=== PATIENT | female | born 1975 | race Caucasian/White ===

== ENCOUNTER 2022-01-12 20:34 | Emergency (ER) | payer OTHER, SELFPAY ==
[2022-01-12] VITALS (8 sets, daily range): BP systolic 156–159; BP diastolic 80–85; PULSE 106–116; RESP 11–26; TEMP 36.8; O2SAT 90–96; BMI 57.7
[2022-01-12 21:18] LABS: Add Manual Diff / Slide Review NO; Basophils Absolute Auto 100 /uL (0-100); Basophils Percent Auto 0.7 % (0-2); Eosinophils Absolute Auto 300 /uL (0-450); Eosinophils Percent Auto 2.4 % (2-4); Hematocrit 36.5 % (36-46); Hemoglobin 12.3 g/dL (12.0-16.0); INR 1.1 (0.9-1.3); Lymphocytes Absolute Auto 2200 /uL (1100-4500); Lymphocytes Percent Auto 18.8 % (25-40); Mean Corpuscular HGB Conc 33.5 % (30-36); Mean Corpuscular Hemoglobin 29.8 PG (26-34); Mean Corpuscular Volume 88.7 fL (80-100); Monocytes Absolute Auto 1000 /uL (0-900); Monocytes Percent Auto 8.3 % (3-14); Neutrophils Absolute Auto 8300 /uL (1500-7000); Neutrophils Percent Auto 69.8 % (50-75); Platelet Count 232 X10^3/uL (150-400); Prothrombin Time 12.7 SECONDS (10.1-12.7); Red Blood Cell Count 4.12 X10^6/uL (4.0-5.2); Red Cell Distribution Width 14.5 % (11.6-14.8); White Blood Cell Count 11.8 X10^3/uL (4.5-11.0)
[2022-01-12 21:21] LABS: PTT Partial Thromboplastin Tim 30 SECONDS (26.4-36.2)
[2022-01-12 21:23] LABS: Alanine Aminotransferase 25 IU/L (<35); Albumin 3.8 g/dL (3.5-5.0); Albumin Globulin Ratio 1.2 (1.0-2.8); Alkaline Phosphatase 73 U/L (38-126); Aspartate Aminotransferase 44 IU/L (14-36); BUN Creatinine Ratio 16.5 (6-22); Bilirubin Total 0.7 mg/dL (0.2-1.3); Blood Urea Nitrogen 15 mg/dL (7-17); Calcium 9.2 mg/dL (8.4-10.2); Carbon Dioxide 30 mmol/L (22-32); Chloride 100 mmol/L (98-107); Estimated Glomerular Filt Rate > 60 mL/min (>60); Globulin 3.2 g/dL (1.7-4.1); Glucose 126 mg/dL (70-100); HEMOLYSIS 22 (0-50); Lipase 190 U/L (23-300); Potassium 4.2 mmol/L (3.4-5.1); Sodium 138 mmol/L (137-145)
--- NOTE | 2022-01-12 23:14 | ED_ITS ---
HPI - GI Bleed General Chief complaint: GI Bleed Stated complaint: Rectal bleeding Time Seen by Provider: 01/12/22 20:55 Source: patient and EMS Mode of arrival: EMS History of Present Illness HPI Narrative: Patient is a 46-year-old female. Has multiple medical problems to include obesity, COPD, use of home oxygen, pulmonary hypertension an asthma She comes emergency department today for which she describes as rectal bleeding. She st ates she was sleeping. When she woke up she felt like that her pants were wet. She went to go use the restroom and noticed that there was blood in her pants. She did report that she did have a somewhat painful bowel movement that was bloody. She denied any urinary symptoms. She states she tried hold pressure on the rectum but could not get the bleeding to stop so she contacted EMS to bring her into the emergency department. She reports no change in her respiratory status. No chest pain. She states that her heart rate is very frequently above 100 so being tachycardic is not unusual for her. She denies any abdominal pain. No nausea or vomiting. No prior history of hemorrhoids. She has had a colonoscopy in the past. This is approximately 3 years ago. She states that multiple polyps were taken at the time. She states she is due to have a repeat colonoscopy. Related Data Previous Rx's Medication Instructions Recorded nystatin 100,000 unit/gram topical 1 applic TOPICAL BID #15 g 01/13/22 powder Allergies Allergy/AdvReac Type Severity Reaction Status Date / Time fexofenadine [From Jazlyn] Allergy Verified 01/12/22 21:02 loratadine [From Claritin] Allergy Verified 01/12/22 21:02 Review of Systems Constitutional Comments: No fevers Cardiovascular Comments: No chest pain Respiratory Comments: No change in respiratory status Gastrointestinal Comments: No abdominal pain but is having rectal bleeding Genitourinary Comments: No urinary symptoms Integumentary/Breasts Comments: Redness on bilateral lower extremities and yeast infection and irritation under her breasts and under her pannus Neurologic Neurologic: Reports system reviewed and no additional complaints, except as documented Hematologic/Lymphatic On Anticoagulants: No Patient History Medical History Asthma Colonic polyp COPD (chronic obstructive pulmonary disease) Pulmonary hypertension Tachycardia Social History (Reviewed 01/13/22 @ 06:38 by JAEL Jack Smoking Status: Never smoker Smoking Status: Never smoker Substance Use Type: does not use Exam Initial Vital Signs Initial Vital Signs: Vital Signs Temperature 98.3 F 01/12/22 20:35 Pulse Rate 116 H 01/12/22 20:35 Respiratory Rate 24 01/12/22 20:35 Blood Pressure 156/85 H 01/12/22 20:35 Pulse Oximetry 95 01/12/22 20:35 Const General: No in distress Nutritional Appearance: obese HENMT Head: normal to inspection and normocephalic Resp Effort & Inspection: not labored and tachypneic Auscultation: diminished lung sounds Cardio Rate: tachycardic Rhythm: regular rhythm GI Other: Patient has no hemorrhoids. She is not bleeding from her rectum. She has bleeding from the skin superior to the rectum. Skin Other: Patient does have redness circumferential bilateral lower extremities from the knees to the ankles. Patient also has sores on her upper buttocks that are cons istent with pressure sores. There is no ulcerations in the area. She also has findings an the folds of her skin under her breast and also her pannus consistent with yeast infection. Neuro General: patient alert, patient awake and moves all extremities Extrem Other: Patient does have swelling bilateral lower extremities with redness from the knees to the ankles. Moves all 4 extremities equally. Psych Appearance: grossly normal Course Orders Ordered: ED Orders 01/12/22 20:45 Complete Blood Count AUTO DIFF Stat Comprehensive Metabolic Panel Stat Lipase Stat Partial Thromboplastin Time Stat Prothrombin Time INR Stat Type and Screen Stat 01/12/22 21:06 EKG-12 Lead Stat 01/12/22 21:07 EKG-12 Lead Stat Vital Signs Vital signs: Vital Signs - 8 hr 01/12/22 23:00 01/12/22 23:28 01/13/22 00:00 Pulse Rate 107 H 111 H 103 H Respiratory Rate 19 24 Blood Pressure 159/80 H Pulse Oximetry 94 90 L 93 01/13/22 00:30 01/13/22 01:00 01/13/22 01:30 Pulse Rate 101 H 104 H 106 H Respiratory Rate Blood Pressure Pulse Oximetry 95 94 01/13/22 02:00 01/13/22 02:08 Pulse Rate 101 H 103 H Respiratory Rate Blood Pressure 155/65 H Pulse Oximetry 94 MDM - GI Bleed Lab Data Attestation: I reviewed the patient's lab results. Result diagrams: 01/12/22 20:45 01/12/22 20:45 Labs: Lab Results 01/12/22 01/12/22 01/12/22 Range/Units 20:45 20:45 20:45 WBC 11.8 H (4.5-11.0) X10^3/uL RBC 4.12 (4.0-5.2) X10^6/uL Hgb 12.3 (12.0-16.0) g/dL Hct 36.5 (36-46) % MCV 88.7 (80-100) fL MCH 29.8 (26-34) PG MCHC 33.5 (30-36) % RDW 14.5 (11.6-14.8) % Plt Count 232 (150-400) X10^3/uL Neut % (Auto) 69.8 (50-75) % Lymph % (Auto) 18.8 L (25-40) % [place] % (Auto) 8.3 (3-14) % Eos % (Auto) 2.4 (2-4) % Baso % (Auto) 0.7 (0-2) % Neut # (Auto) 8300 H (6585-2113) /uL Lymph # (Auto) 2200 (3914-6562) /uL [place] # (Auto) 1000 H (0-900) /uL Eos # (Auto) 300 (0-450) /uL Baso # (Auto) 100 (0-100) /uL PT 12.7 (10.1-12.7) SECONDS INR 1.1 (0.9-1.3) APTT 30 (26.4-36.2) SECONDS Sodium (137-145) mmol/L Potassium (3.4-5.1) mmol/L Chloride (98-107) mmol/L Carbon Dioxide (22-32) mmol/L BUN (7-17) mg/dL Creatinine (0.52-1.04) mg/dL Estimated GFR (>60) mL/min BUN/Creatinine Ratio (6-22) Glucose (70-100) mg/dL Calcium (8.4-10.2) mg/dL Total Bilirubin (0.2-1.3) mg/dL AST (14-36) IU/L ALT (<35) IU/L Alkaline Phosphatase (38-126) U/L Total Protein (6.3-8.2) g/dL Albumin (3.5-5.0) g/dL Globulin (1.7-4.1) g/dL Albumin/Globulin Ratio (1.0-2.8) Lipase (23-300) U/L Blood Type O Positive Antibody Screen Negative 01/12/22 Range/Units 20:45 WBC (4.5-11.0) X10^3/uL RBC (4.0-5.2) X10^6/uL Hgb (12.0-16.0) g/dL Hct (36-46) % MCV (80-100) fL MCH (26-34) PG MCHC (30-36) % RDW (11.6-14.8) % Plt Count (150-400) X10^3/uL Neut % (Auto) (50-75) % Lymph % (Auto) (25-40) % [place] % (Auto) (3-14) % Eos % (Auto) (2-4) % Baso % (Auto) (0-2) % Neut # (Auto) (4998-3573) /uL Lymph # (Auto) (0652-6928) /uL [place] # (Auto) (0-900) /uL Eos # (Auto) (0-450) /uL Baso # (Auto) (0-100) /uL PT (10.1-12.7) SECONDS INR (0.9-1.3) APTT (26.4-36.2) SECONDS Sodium 138 (137-145) mmol/L Potassium 4.2 (3.4-5.1) mmol/L Chloride 100 (98-107) mmol/L Carbon Dioxide 30 (22-32) mmol/L BUN 15 (7-17) mg/dL Creatinine 0.91 (0.52-1.04) mg/dL Estimated GFR > 60 (>60) mL/min BUN/Creatinine Ratio 16.5 (6-22) Glucose 126 H (70-100) mg/dL Calcium 9.2 (8.4-10.2) mg/dL Total Bilirubin 0.7 (0.2-1.3) mg/dL AST 44 H (14-36) IU/L ALT 25 (<35) IU/L Alkaline Phosphatase 73 (38-126) U/L Total Protein 7.0 (6.3-8.2) g/dL Albumin 3.8 (3.5-5.0) g/dL Globulin 3.2 (1.7-4.1) g/dL Albumin/Globulin Ratio 1.2 (1.0-2.8) Lipase 190 (23-300) U/L Blood Type Antibody Screen ECG Data Attestation: I personally reviewed and interpreted this ECG as follows: Interpretation: Sinus tachycardia Ventricular rate 110 Normal axis Normal QRS Normal QTC No ST T wave changes MDM Narrative Medical decision making narrative: Respiratory status is baseline for her. Tachycardia is not unusual for her as well. The redness in her lower extremities is more consistent with a venous stasis/dermatitis rather than cellulitis. There is no indication for antibiotics with regard to this. She has obvious issues with the skin folds and today it does appear that she is having findings consistent with yeast infe ction. Will start her on nystatin powder for this. Also informed her that keeping this area clean and dry as best as possible will also help with these situations. Patient is not having any bleeding from her rectum. The bleeding is actually coming from the skin superior to the rectum. In this area the patient is obviously spent an extended period of time sitting. There are no pressure ulcers but there is certainly redness and hyperemia to the skin. On the left superior buttocks there is a area of hyperemia and also an area very thin skin in this area where the bleeding is coming from. It was a fairly steady stream when there is no pressure over the area. Approximately 5 cc of 1% lidocaine with epinephrine was injected into the area however the bleeding did not stop. One 4-0 silk stitch was placed in the area and this did control the bleeding quite a bit however there was still oozing from the area. Pressure was applied and the patient was instructed does sit for. Time. Upon re-evaluation there were still oozing from the area so Gelfoam was placed over the area and again a pressure dressing was placed. After further observation the bleeding in the oozing seem to stop. Another pressure dressing was applied and the patient was instructed try to keep this in place for the next 24-48 hours after which she could remove the dressing. She was informed that the stitch will need to be removed in approximately 7 days. She was instructed to contact her primary doctor for this. Blood counts unremarkable. She was given return precautions. She expressed understanding and agreement. Discharge Plan Departure Patient Disposition: Home Clinical Impression: Pressure sore on buttocks Instructions: Pressure Injuries Activity Restrictions/Additional Instructions: If possible leave the bandage in place for the next 24-36 hours. After that you can take it off. The stitch that was placed today will need to be removed by your primary provider. Return to the emergency department for any new or worsening symptoms. Prescriptions: New nystatin 100,000 unit/gram powder 1 applic topical BID Qty: 15 3RF
[2022-01-13] VITALS: PULSE 103; O2SAT 93
[2022-01-13 00:30] VITALS: PULSE 101; O2SAT 95
[2022-01-13 01:00] VITALS: PULSE 104; O2SAT 94
[2022-01-13 01:30] VITALS: PULSE 106
[2022-01-13 02:00] VITALS: PULSE 101
[2022-01-13 02:08] VITALS: BP 155/65; PULSE 103; O2SAT 94
== END 2022-01-13 02:40 | disposition home or self-care (01) ==
PROVIDERS: Emergency Provider Emergency Medicine
DX: L89.329 Pressure ulcer of left buttock, unspecified stage (principal); L53.9 Erythematous condition, unspecified
CPT/HCPCS: 12001; 80053; 83690; 85025; 85610; 85730; 86850; 86900; 86901; 93005; 99283; 99284

== ENCOUNTER 2022-01-27 22:31 | Emergency (ER) | payer OTHER, SELFPAY ==
[2022-01-27 22:31] VITALS: BP 169/88; PULSE 150; RESP 21; O2SAT 91; BMI 69.4
[2022-01-27 22:43] VITALS: PULSE 152; RESP 20; O2SAT 91
--- NOTE | 2022-01-27 22:56 | ED_ITS ---
HPI - Arrhythmia/Palpitations General Chief Complaint: Arrhythmia/Palpitations Stated Complaint: rapid heart rate Time Seen by Provider: 01/27/22 22:33 Source: patient Mode of arrival: EMS History of Present Illness HPI narrative: Patient is a 46-year-old female who is brought in by EMS for evaluation of a fast heart rate. Patient states she was at her normal state health sitting in her chair when she states she started to feel like her heart was beating fast. She does have a history of COPD and sleep apnea. She has oxygen that she uses at home occasionally. She states that she did not have any change of her baseline respiratory issues. She had no chest pain. She does states that it just felt very funny in her chest. No lightheadedness. No headache. No nausea vomiting. She has never had a history of atrial fibrillation or fast heart rate in the past. She has been taking all of her medications as directed. She conta cted EMS because of her symptoms and was brought to the emergency department for evaluation. Related Data Home Medications Medication Instructions Recorded Confirmed albuterol sulfate See Rx Instructions .ROUTE .COMPLEX 01/27/22 01/27/22 albuterol sulfate 90 mcg/actuation 2 puff INHALATION Q4H PRN 01/27/22 01/27/22 aerosol inhaler aripiprazole 5 mg tablet 5 mg PO DAILY 01/27/22 01/27/22 bupropion HCl 150 mg 24 hr tablet, 150 mg PO QAM 01/27/22 01/27/22 extended release (Wellbutrin XL) bupropion HCl 300 mg 24 hr tablet, 300 mg PO QAM 01/27/22 01/27/22 extended release (Wellbutrin XL) fluoxetine 10 mg capsule 70 mg PO DAILY 01/27/22 01/27/22 fluticasone 500 mcg-salmeterol 50 1 inh INHALATION BID 01/27/22 01/27/22 mcg/dose blistr powdr for inhalation furosemide 20 mg tablet 20 mg PO BID 01/27/22 01/27/22 lamotrigine 25 mg tablet (Lamictal) 75 mg PO DAILY 01/27/22 01/27/22 lisinopril 20 mg tablet 20 mg PO DAILY 01/27/22 01/27/22 montelukast 10 mg tablet 10 mg PO BEDTIME 05/06/22 05/06/22 (Singulair) olanzapine 20 mg tablet (Zyprexa) 20 mg PO BEDTIME 01/27/22 01/27/22 spironolactone 50 mg tablet 50 mg PO DAILY 01/27/22 01/27/22 tiotropium bromide 18 mcg capsule 1 cap INHALATION DAILY 01/27/22 01/27/22 with inhalation device Allergies Allergy/AdvReac Type Severity Reaction Status Date / Time fexofenadine [From Jazlyn] Allergy Severe Anaphylaxis Verified 01/27/22 22:43 loratadine [From Claritin] Allergy Severe Anaphylaxis Verified 01/27/22 22:43 cyclobenzaprine Allergy Hallucinati Verified 01/27/22 22:50 ng hydrochlorothiazide Allergy Fatigued Verified 01/27/22 22:43 lithium Allergy Verified 01/27/22 22:50 lurasidone Allergy Agitated Verified 01/27/22 22:43 ondansetron Allergy Agitated Verified 01/27/22 22:43 quetiapine [From Seroquel] Allergy Fatigued Verified 01/27/22 22:50 risperidone Allergy Verified 01/27/22 22:50 valproic acid Allergy Fatigued Verified 01/27/22 22:50 ziprasidone Allergy Verified 01/27/22 22:50 Review of Systems Constitutional Constitutional: Denies fever(s) and Denies headache(s) ENT Ears, Nose, Mouth, and Throat: Denies headache(s) Cardiovascular Cardiovascular: Denies chest pain at rest, Denies syncope and Reports rapid heart rate Respiratory Respiratory: Denies cough and Reports other (No change in respiratory status) Gastrointestinal Gastrointestinal: Reports system reviewed and no additional complaints, except as documented Genitourinary Genitourinary: Reports system reviewed and no additional complaints, except as documented Musculoskeletal Musculoskeletal: Reports system reviewed and no additional complaints, except as documented Integumentary/Breasts Skin/Breast: Denies rash Neurologic Neurologic: Denies syncope and Denies headache(s) Hematologic/Lymphatic On Anticoagulants: No Patient History Medical History Asthma Colonic polyp COPD (chronic obstructive pulmonary disease) Pulmonary hypertension Tachycardia Social History Smoking Status: Never smoker Smoking Status: Never smoker Substance Use Type: does not use Exam Initial Vital Signs Initial Vital Signs: Vital Signs Pulse Rate 150 H 01/27/22 22:31 Respiratory Rate 21 01/27/22 22:31 Blood Pressure 169/88 H 01/27/22 22:31 Pulse Oximetry 91 01/27/22 22:31 Const General: cooperative and comfortable HENMT Head: normal to inspection and normocephalic Resp Effort & Inspection: normal respiratory effort Auscultation: clear to auscultation bilaterally Cardio Rate: tachycardic Rhythm: regular rhythm Neuro General: patient alert, patient awake and moves all extremities Extrem General: capillary refill normal and edema Course Orders Ordered: ED Orders 01/27/22 22:40 Complete Blood Count AUTO DIFF Stat Comprehensive Metabolic Panel Stat Lipase Stat Magnesium Stat NT-proBNP (BNP-Adult 18+) Stat Partial Thromboplastin Time Stat Prothrombin Time INR Stat Troponin & CK Cardiac Panel Stat 01/27/22 22:58 XR chest 1V Stat 01/27/22 23:05 COVID19 -Nasal RAPID/Pre-Proc Stat 01/28/22 EKG-12 Lead Routine Discontinued Medications Diltiazem HCl (Diltiazem 5 Mg/Ml Sdv) 10 mg IV NOW ONE Stop: 01/27/22 22:58 Last Admin: 01/27/22 23:09 Dose: 10 mg Documented by: CASH Sodium Chloride (Normal Saline 0.9%) 1,000 mls @ 125 mls/hr IV CONT BIGG Last Admin: 01/28/22 00:00 Dose: Not Given Documented by: CLEM Diltiazem HCl 125 mg/ Dextrose 125 mls @ 5 mls/hr IV TITRATE BIGG; Protocol Last Admin: 01/27/22 23:40 Dose: Not Given Documented by: CLEM Vital Signs Vital signs: Vital Signs - 8 hr 01/27/22 22:31 01/27/22 22:43 01/27/22 23:00 Temperature Pulse Rate 150 H 152 H 148 H Respiratory Rate 21 20 21 Blood Pressure 169/88 H Pulse Oximetry 91 91 90 L 01/27/22 23:30 01/27/22 23:50 Temperature 98.1 F Pulse Rate 109 H Respiratory Rate 17 Blood Pressure Pulse Oximetry 91 MDM - Arrhythmia/Palpitations Medical Records Attestation: I reviewed the patient's medical records. Lab Data Attestation: I reviewed the patient's lab results. Result diagrams: 01/27/22 22:40 01/27/22 22:40 Labs: Lab Results 01/27/22 01/27/22 01/27/22 Range/Units 22:40 22:40 22:40 WBC 11.8 H (4.5-11.0) X10^3/uL RBC 4.50 (4.0-5.2) X10^6/uL Hgb 13.4 (12.0-16.0) g/dL Hct 40.1 (36-46) % MCV 89.2 (80-100) fL MCH 29.8 (26-34) PG MCHC 33.4 (30-36) % RDW 14.7 (11.6-14.8) % Plt Count 271 (150-400) X10^3/uL Neut % (Auto) 55.5 (50-75) % Lymph % (Auto) 31.5 (25-40) % [place] % (Auto) 9.8 (3-14) % Eos % (Auto) 2.4 (2-4) % Baso % (Auto) 0.8 (0-2) % Neut # (Auto) 6500 (2458-4364) /uL Lymph # (Auto) 3700 (0319-7358) /uL [place] # (Auto) 1200 H (0-900) /uL Eos # (Auto) 300 (0-450) /uL Baso # (Auto) 100 (0-100) /uL PT 11.8 (10.1-12.7) SECONDS INR 1.0 (0.9-1.3) APTT 32 (26.4-36.2) SECONDS Sodium 139 (137-145) mmol/L Potassium 4.3 (3.4-5.1) mmol/L Chloride 101 (98-107) mmol/L Carbon Dioxide 28 (22-32) mmol/L BUN 17 (7-17) mg/dL Creatinine 1.03 (0.52-1.04) mg/dL Estimated GFR > 60 (>60) mL/min BUN/Creatinine Ratio 16.5 (6-22) Glucose 153 H (70-100) mg/dL Calcium 9.5 (8.4-10.2) mg/dL Magnesium 2.0 (1.6-2.3) mg/dL Total Bilirubin 0.5 (0.2-1.3) mg/dL AST 30 (14-36) IU/L ALT 22 (<35) IU/L Alkaline Phosphatase 86 (38-126) U/L Total Creatine Kinase 50 (30-135) U/L CK-MB (CK-2) TNP CK-MB (CK-2) Rel Index TNP Troponin I < 0.012 (0.01-0.034) ng/mL NT-Pro-B Natriuret Pep 60 (<125) pg/mL Total Protein 7.5 (6.3-8.2) g/dL Albumin 4.1 (3.5-5.0) g/dL Globulin 3.4 (1.7-4.1) g/dL Albumin/Globulin Ratio 1.2 (1.0-2.8) Lipase 182 (23-300) U/L SARS-CoV-2 (PCR) (Negative) 01/27/22 Range/Units 23:05 WBC (4.5-11.0) X10^3/uL RBC (4.0-5.2) X10^6/uL Hgb (12.0-16.0) g/dL Hct (36-46) % MCV (80-100) fL MCH (26-34) PG MCHC (30-36) % RDW (11.6-14.8) % Plt Count (150-400) X10^3/uL Neut % (Auto) (50-75) % Lymph % (Auto) (25-40) % [place] % (Auto) (3-14) % Eos % (Auto) (2-4) % Baso % (Auto) (0-2) % Neut # (Auto) (0526-0905) /uL Lymph # (Auto) (5176-0853) /uL [place] # (Auto) (0-900) /uL Eos # (Auto) (0-450) /uL Baso # (Auto) (0-100) /uL PT (10.1-12.7) SECONDS INR (0.9-1.3) APTT (26.4-36.2) SECONDS Sodium (137-145) mmol/L Potassium (3.4-5.1) mmol/L Chloride (98-107) mmol/L Carbon Dioxide (22-32) mmol/L BUN (7-17) mg/dL Creatinine (0.52-1.04) mg/dL Estimated GFR (>60) mL/min BUN/Creatinine Ratio (6-22) Glucose (70-100) mg/dL Calcium (8.4-10.2) mg/dL Magnesium (1.6-2.3) mg/dL Total Bilirubin (0.2-1.3) mg/dL AST (14-36) IU/L ALT (<35) IU/L Alkaline Phosphatase (38-126) U/L Total Creatine Kinase (30-135) U/L CK-MB (CK-2) CK-MB (CK-2) Rel Index Troponin I (0.01-0.034) ng/mL NT-Pro-B Natriuret Pep (<125) pg/mL Total Protein (6.3-8.2) g/dL Albumin (3.5-5.0) g/dL Globulin (1.7-4.1) g/dL Albumin/Globulin Ratio (1.0-2.8) Lipase (23-300) U/L SARS-CoV-2 (PCR) Negative (Negative) Urine Dip Bedside Urine Glucose Negative Bedside Urine Bilirubin - Negative Bedside Urine Ketone - Negative Urine Specific [place] 1.015 Bedside Urine Occult Blood - Negative Bedside Urine pH 7.0 Bedside Urine Protein - Negative Bedside Urine Urobilinogen - Negative Bedside Urine Nitrite - Negative Bedside Urine Leukocytes - Negative Esterase Imaging Data Chest x-ray: Radiologist's Impresson: [address] [address] XRay Report Signed Patient: Silke Miller MR#: [id number] : 1975 Acct:[id number] Age/Sex: 46 / F Date of Service: 01/27/22 Loc: ED Accession Number: [id number] ?? Procedure: XR chest 1V Ordering Provider: Charanjit Bravo D.O. PROCEDURE:? XR CHEST 1V ? INDICATIONS:? Atrial fibrillation ? TECHNIQUE:? One view of the chest was acquired.? ? COMPARISON:? None. ? FINDINGS:? ? Surgical changes and devices:? None.? ? Lungs and pleura:? Evaluation limited by lordotic technique.? There are low lung volumes with linear opacities in the lung bases likely representing atelectasis.? No pl eural effusions or pneumothorax.? ? Mediastinum:? Mediastinal contours appear normal.? Heart size is enlarged.? ? Bones and chest wall:? No suspicious bony lesions.? Overlying soft tissues appear unremarkable.? ? IMPRESSION:? ? 1. Low lung volumes with probable atelectasis in the lung bases.? ? ? Dictated by: Leon Crenshaw M.D. on 01/28/2022 at 0:38 ? ? Approved by: Leon Crenshaw M.D. on 01/28/2022 at 0:40?? ECG Data Attestation: I personally reviewed and interpreted this ECG as follows: Interpretation: Arrival EKG SVT Ventricular rate 152 Normal QRS Normal QTC No ST T wave changes Post cardioversion EKG Sinus tachycardia Ventricular rate 109 Normal axis Normal QRS Normal QTC No ST T wave changes MDM Narrative Medical decision making narrative: No chest pain. No respiratory distress. Satting above 90% on room air. Arrival EKG does show a SVT with heart rate of 152. There are no P waves noted. Unsure this is a sinus tachycardia versus atrial fibrillation versus a flutter. I did slow the EKG down and it did have findings consistent with atrial fibrillation. Had a discussion with the patient regarding this. We discussed options to include rate control versus rhythm control. We discussed card ioversion and sedation in the emergency department verses IV medication. She is a candidate for cardioversion given the fact that she has only had symptoms for a very short period of time. We did discuss the risks of sedation. Given her underlying respiratory status and her obesity this is somewhat of a concern. This was concerning for the patient as well and after this discussion the patient opted for rate control and she do that she potentially would need admitted to the hospital for this. She was given 10 mg of Cardizem and her heart rate decreased to 109. Repeat EKG now shows a sinus tachycardia. Patient states that the fluttering in her heart has completely resolved. She feels back to normal again. Last time the patient was in the emergency department her heart rate was 116. She states that at home she normally runs in the upper 90s but frequently when she comes to the doctor her heart rate is elevated. It appears that the patient has converted back to sinus rhythm. I did discuss this with her. We will hold on starting any anticoagulation or antiarrhythmics or beta-blockers given her other comorbidities. She will be discharged home and was given strict return precautions. She will contact her primary doctor for follow-up. She expressed understanding and agreement. Discharge Plan Departure Patient Disposition: Home Clinical Impression: Atrial fibrillation Instructions: DI for Atrial Fibrillation Activity Restrictions/Additional Instructions: I do recommend that you continue to take all of your medications as directed. You do need to contact your primary doctor on Sunday for a follow-up to discuss further evaluation of why you and AFib today. Return to the emergency department for any new or worsening symptoms. Prescriptions: No Action lisinopril 20 mg Tablet 20 mg PO DAILY 0RF lamotrigine [Lamictal] 25 mg Tablet 75 mg PO DAILY 0RF fluticasone propion-salmeterol 500-50 mcg/dose Blister With Device 1 inh INHALATION BID 0RF fluoxetine 10 mg Capsule 70 mg PO DAILY 0RF montelukast [Singulair] 10 mg Tablet 10 mg PO BEDTIME 0RF furosemide 20 mg Tablet 20 mg PO BID 0RF olanzapine [Zyprexa] 20 mg Tablet 20 mg PO BEDTIME 0RF spironolactone 50 mg Tablet 50 mg PO DAILY 0RF aripiprazole 5 mg Tablet 5 mg PO DAILY 0RF bupropion HCl [Wellbutrin XL] 300 mg Tablet Extended Release 24 Hr 300 mg PO QAM 0RF Rx Instructions: To be taken with 150Mg for total of 450mg/day bupropion HCl [Wellbutrin XL] 150 mg Tablet Extended Release 24 Hr 150 mg PO QAM 0RF Rx Instructions: To be taken with 150Mg for total of 450mg/day tiotropium bromide 18 mcg Capsule, W/Inhalation Device 1 cap INHALATION DAILY 0RF Rx Instructions: puncture 1 cap using device; one dose = 2 inhalations albuterol sulfate 2.5 mg /3 mL (0.083 %) solution for nebulization See Rx Instructions .ROUTE .COMPLEX 0RF Label Comments: 1-2 treatments every 20 minutes for 3 doses then 1-4 treatments every 1-4 hours as needed Rx Instructions: 2.5 mg inhaled albuterol sulfate 90 mcg/actuation HFA aerosol inhaler 2 puff INHALATION Q4H PRN (Reason: Wheezing) 0RF
--- NOTE | 2022-01-27 22:58 | DI.RAD.S_ITS ---
PROCEDURE: XR CHEST 1V INDICATIONS: Atrial fibrillation TECHNIQUE: One view of the chest was acquired. COMPARISON: None. FINDINGS: Surgical changes and devices: None. Lungs and pleura: Evaluation limited by lordotic technique. There are low lung volumes with linear opacities in the lung bases likely representing atelectasis. No pleural effusions or pneumothorax. Mediastinum: Mediastinal contours appear normal. Heart size is enlarged. Bones and chest wall: No suspicious bony lesions. Overlying soft tissues appear unremarkable. IMPRESSION: 1. Low lung volumes with probable atelectasis in the lung bases. Dictated by: Leon Crenshaw M.D. on 01/28/2022 at 0:38 Approved by: Leon Crenshaw M.D. on 01/28/2022 at 0:40
[2022-01-27 23:00] VITALS: PULSE 148; RESP 21; O2SAT 90
[2022-01-27 23:07] LABS: Add Manual Diff / Slide Review NO; Basophils Absolute Auto 100 /uL (0-100); Basophils Percent Auto 0.8 % (0-2); Eosinophils Absolute Auto 300 /uL (0-450); Eosinophils Percent Auto 2.4 % (2-4); Hematocrit 40.1 % (36-46); Hemoglobin 13.4 g/dL (12.0-16.0); Lymphocytes Absolute Auto 3700 /uL (1100-4500); Lymphocytes Percent Auto 31.5 % (25-40); Mean Corpuscular HGB Conc 33.4 % (30-36); Mean Corpuscular Hemoglobin 29.8 PG (26-34); Mean Corpuscular Volume 89.2 fL (80-100); Monocytes Absolute Auto 1200 /uL (0-900); Monocytes Percent Auto 9.8 % (3-14); Neutrophils Absolute Auto 6500 /uL (1500-7000); Neutrophils Percent Auto 55.5 % (50-75); Platelet Count 271 X10^3/uL (150-400); Red Cell Distribution Width 14.7 % (11.6-14.8); White Blood Cell Count 11.8 X10^3/uL (4.5-11.0)
[2022-01-27] MEDS: dilTIAZem 5 MG/ML SDV 10 MG IV (23:09)
[2022-01-27 23:10] LABS: Prothrombin Time 11.8 SECONDS (10.1-12.7)
[2022-01-27 23:13] LABS: Alanine Aminotransferase 22 IU/L (<35); Albumin 4.1 g/dL (3.5-5.0); Albumin Globulin Ratio 1.2 (1.0-2.8); Alkaline Phosphatase 86 U/L (38-126); Aspartate Aminotransferase 30 IU/L (14-36); BUN Creatinine Ratio 16.5 (6-22); Bilirubin Total 0.5 mg/dL (0.2-1.3); Blood Urea Nitrogen 17 mg/dL (7-17); Calcium 9.5 mg/dL (8.4-10.2); Carbon Dioxide 28 mmol/L (22-32); Chloride 101 mmol/L (98-107); Creatine Kinase 50 U/L (30-135); Estimated Glomerular Filt Rate > 60 mL/min (>60); Globulin 3.4 g/dL (1.7-4.1); Glucose 153 mg/dL (70-100); HEMOLYSIS < 15 (0-50); Lipase 182 U/L (23-300); PTT Partial Thromboplastin Tim 32 SECONDS (26.4-36.2); Potassium 4.3 mmol/L (3.4-5.1); Sodium 139 mmol/L (137-145); Total Protein 7.5 g/dL (6.3-8.2)
[2022-01-27 23:23] LABS: COVID19 -Nasal RAPID Negative (Negative)
[2022-01-27 23:25] LABS: NT-proBNP (BNP-Adult 18+) 60 pg/mL (<125); Troponin I < 0.012 ng/mL (0.01-0.034)
[2022-01-27 23:30] VITALS: PULSE 109; RESP 17; O2SAT 91
[2022-01-27 23:50] VITALS: TEMP 36.7
== END 2022-01-28 00:16 | disposition home or self-care (01) ==
PROVIDERS: Emergency Provider Emergency Medicine
DX: I48.91 Unspecified atrial fibrillation (principal); Z20.822 Contact with and (suspected) exposure to COVID-19
CPT/HCPCS: 36415; 71045; 80053; 81003; 82550; 82553; 83690; 83735; 83880; 84484; 85025; 85610; 85730; 87635; 93005; 93010; 96374; 99284; C9803

== ENCOUNTER 2022-02-14 09:51 | Emergency (ER) | payer OTHER, SELFPAY ==
[2022-02-14 10:30] VITALS: BP 143/70; PULSE 102; RESP 22; TEMP 36.3; O2SAT 95; BMI 70.9
[2022-02-14 11:44] VITALS: BP 173/83; O2SAT 94
[2022-02-14 12:00] VITALS: PULSE 117; O2SAT 92
--- NOTE | 2022-02-14 12:23 | ED.SKABFB ---
HPI - Skin/Abscess/Foreign Bdy <Margarita Melendrez PA-C - Last Filed: 02/14/22 13:28> General Chief complaint: Skin/Abscess/Foreign Body Stated complaint: States pressure sore on buttocks bleeding heavily Time Seen by Provider: 02/14/22 11:59 Source: patient Mode of arrival: Family Vehicle Limitations: no limitations History of Present Illness HPI narrative: 46-year-old female as to the ED with a bleeding pressure ulcer. Patient was seen in the ED on 01/13/22 for the same complaint, a stitch was placed to control the bleeding and discharged home. Patient states that after that, she had the stitch removed and there was good resolution of the ulcer with no bleeding thereafter. However this morning, the patient notice that the ulcer began to bleed again. Patient states that arm after sitting for a while, hemostasis was achieved. In the ED, the ulcer is not bleeding. Patient denies any pain at the site of the ulcer, swelling, discharge other than the bleeding. Patient denies history of constipation, hemorrhoids. Patient denies any blood from the rectum. The pressure ulcer is above the rectum on the medial left gluteal cheek. Patient denies fever, chills, chest pain, shortness of breath. Related Data Home Medications Medication Instructions Recorded Confirmed albuterol sulfate See Rx Instructions .ROUTE .COMPLEX 01/27/22 01/27/22 albuterol sulfate 90 mcg/actuation 2 puff INHALATION Q4H PRN 01/27/22 01/27/22 aerosol inhaler aripiprazole 5 mg tablet 5 mg PO DAILY 01/27/22 01/27/22 bupropion HCl 150 mg 24 hr tablet, 150 mg PO QAM 01/27/22 01/27/22 extended release (Wellbutrin XL) bupropion HCl 300 mg 24 hr tablet, 300 mg PO QAM 01/27/22 01/27/22 extended release (Wellbutrin XL) fluoxetine 10 mg capsule 70 mg PO DAILY 01/27/22 01/27/22 fluticasone 500 mcg-salmeterol 50 1 inh INHALATION BID 01/27/22 01/27/22 mcg/dose blistr powdr for inhalation furosemide 20 mg tablet 20 mg PO BID 01/27/22 01/27/22 lamotrigine 25 mg tablet (Lamictal) 75 mg PO DAILY 01/27/22 01/27/22 lisinopril 20 mg tablet 20 mg PO DAILY 01/27/22 01/27/22 montelukast 10 mg tablet 10 mg PO BEDTIME 01/27/22 01/27/22 (Singulair) olanzapine 20 mg tablet (Zyprexa) 20 mg PO BEDTIME 01/27/22 01/27/22 spironolactone 50 mg tablet 50 mg PO DAILY 01/27/22 01/27/22 tiotropium bromide 18 mcg capsule 1 cap INHALATION DAILY 01/27/22 01/27/22 with inhalation device Allergies Allergy/AdvReac Type Severity Reaction Status Date / Time fexofenadine [From Jazlyn] Allergy Severe Anaphylaxis Verified 02/14/22 10:30 loratadine [From Claritin] Allergy Severe Anaphylaxis Verified 02/14/22 10:30 cyclobenzaprine Allergy Hallucinati Verified 02/14/22 10:30 ng hydrochlorothiazide Allergy Fatigued Verified 02/14/22 10:30 lithium Allergy Verified 02/14/22 10:30 lurasidone Allergy Agitated Verified 02/14/22 10:30 ondansetron Allergy Agitated Verified 02/14/22 10:30 quetiapine [From Seroquel] Allergy Fatigued Verified 02/14/22 10:30 risperidone Allergy Verified 02/14/22 10:30 valproic acid Allergy Fatigued Verified 02/14/22 10:30 ziprasidone Allergy Verified 01/27/22 22:50 Review of Systems <Margarita Melendrez PA-C - Last Filed: 02/14/22 13:28> Review of Systems ROS Unobtainable: All systems reviewed & are unremarkable except as noted in HPI and below Constitutional Constitutional: Denies chills, Denies fatigue, Denies fever(s), Denies frequent falls, Denies lethargy and Denies weakness Eyes Eyes: Denies change in vision, Denies eye discharge, Denies irritation and Denies loss of vision ENT Ears, Nose, Mouth, and Throat: Denies change in voice, Denies dizziness, Denies neck pain, Denies sore throat and Denies throat swelling Cardiovascular Cardiovascular: Denies chest pain, Denies irregular heart rhythm, Denies lightheadedness, Denies palpitations, Denies dyspnea, Denies dyspnea on exertion and Denies orthopnea Respiratory Respiratory: Denies cough, Denies dyspnea, Denies dyspnea on exertion and Denies wheezing Gastrointestinal Gastrointestinal: Denies abdominal pain, Denies change in bowel habits, Denies diarrhea, Denies nausea and Denies vomiting Musculoskeletal Musculoskeletal: Denies back pain, Denies muscle weakness, Denies neck pain, Denies numbness and Denies tingling Integumentary/Breasts Skin/Breast: Denies pruritus, Denies erythema, Denies rash and Denies wounds Comments: Bleeding pressure ulcer on left gluteal cheek Neurologic Neurologic: Denies behavioral changes, Denies confusion, Denies dizziness, Denies frequent falls, Denies loss of vision, Denies numbness, Denies tingling and Denies weakness Psychiatric Psychiatric: Denies anxiety, Denies behavioral changes, Denies confusion, Denies depression, Denies homicidal ideation and Denies suicidal ideation Endocrine Endocrine: Denies fatigue, Denies flushing and Denies palpitations Hematologic/Lymphatic Hematologic/Lymphatic: Denies easy bruising Allergic/Immunologic Allergic/Immunologic: Denies urticaria, Denies throat swelling and Denies wheezing Patient History <Margarita Melendrez PA-C - Last Filed: 02/14/22 13:28> Medical History Asthma Colonic polyp COPD (chronic obstructive pulmonary disease) Pulmonary hypertension Tachycardia Social History Smoking Status: Never smoker Smoking Status: Never smoker alcohol intake frequency: 0-2 drinks per day Substance Use Type: does not use Exam <Margarita Melendrez PA-C - Last Filed: 02/14/22 13:28> Initial Vital Signs Initial Vital Signs: Vital Signs Temperature 97.3 F L 02/14/22 10:30 Pulse Rate 102 H 02/14/22 10:30 Respiratory Rate 22 02/14/22 10:30 Blood Pressure 143/70 H 02/14/22 10:30 Pulse Oximetry 95 02/14/22 10:30 Const General: cooperative, healthy appearing and comfortable Nutritional Appearance: obese Eyes General: Yes appearance normal, both eyes and all related structures Resp Effort & Inspection: normal respiratory effort Cardio Rate: tachycardic Rhythm: regular rhythm GI Other: Pressure ulcer visualized on medial left gluteal cheek above the rectum. No signs of rectal bleeding. No hemorrhoids visualized. The pressure ulcer is not bleeding at the time of exam. No signs of infection including erythema, warmth, tenderness, discharge. Neuro General: patient alert, patient awake and patient oriented x3 Psych Appearance: grossly normal Mental Status: mental status grossly normal <Cora Jackson MD - Last Filed: 02/14/22 17:56> Initial Vital Signs Initial Vital Signs: Vital Signs Temperature 97.3 F L 02/14/22 10:30 Pulse Rate 102 H 02/14/22 10:30 Respiratory Rate 22 02/14/22 10:30 Blood Pressure 143/70 H 02/14/22 10:30 Pulse Oximetry 95 02/14/22 10:30 Course <Margarita Melendrez PA-C - Last Filed: 02/14/22 13:28> Vital Signs Vital signs: Vital Signs - 8 hr 02/14/22 10:30 02/14/22 11:44 02/14/22 12:00 Temperature 97.3 F L Pulse Rate 102 H 117 H Respiratory Rate 22 Blood Pressure 143/70 H 173/83 H Pulse Oximetry 95 94 92 02/14/22 12:30 Temperature Pulse Rate 104 H Respiratory Rate Blood Pressure Pulse Oximetry 92 <Cora Jackson MD - Last Filed: 02/14/22 17:56> Vital Signs Vital signs: Vital Signs - 8 hr 02/14/22 10:30 02/14/22 11:44 02/14/22 12:00 Temperature 97.3 F L Pulse Rate 102 H 117 H Respiratory Rate 22 Blood Pressure 143/70 H 173/83 H Pulse Oximetry 95 94 92 02/14/22 12:30 Temperature Pulse Rate 104 H Respiratory Rate Blood Pressure Pulse Oximetry 92 MDM - Skin/Abscess/Foreign Bdy <ALYCIA Rey Last Filed: 02/14/22 13:28> MDM Narrative Medical decision making narrative: 46-year-old female as to the ED with a bleeding pressure ulcer. Physical exam is reassuring for no signs of infection. The ulcer is not currently bleeding in the ED. Will observe for a few minutes, discharge home. Patient was reassessed in the ED, the was no active bleeding. Discharge patient home with ED return precautions. Patient verbalized understanding. Discharge Plan Departure Patient Disposition: Home Clinical Impression: Pressure ulcer Instructions: Pressure Injuries Activity Restrictions/Additional Instructions: You were evaluated in the ED today for a bleeding pressure ulcer. During the ED stay, the ulcer had stopped bleeding, and there are no signs of infection upon examination. You may continue to apply pressure, and no other treatment is indicated at this time. If you notice any signs of infection including redness, swelling, discharge, warmth or you notice increased bleeding, please return to the ED. Please follow-up with your PCP for wound management. Prescriptions: No Action lisinopril 20 mg Tablet 20 mg PO DAILY 0RF lamotrigine [Lamictal] 25 mg Tablet 75 mg PO DAILY 0RF fluticasone propion-salmeterol 500-50 mcg/dose Blister With Device 1 inh INHALATION BID 0RF fluoxetine 10 mg Capsule 70 mg PO DAILY 0RF montelukast [Singulair] 10 mg Tablet 10 mg PO BEDTIME 0RF furosemide 20 mg Tablet 20 mg PO BID 0RF olanzapine [Zyprexa] 20 mg Tablet 20 mg PO BEDTIME 0RF spironolactone 50 mg Tablet 50 mg PO DAILY 0RF aripiprazole 5 mg Tablet 5 mg PO DAILY 0RF bupropion HCl [Wellbutrin XL] 300 mg Tablet Extended Release 24 Hr 300 mg PO QAM 0RF Rx Instructions: To be taken with 150Mg for total of 450mg/day bupropion HCl [Wellbutrin XL] 150 mg Tablet Extended Release 24 Hr 150 mg PO QAM 0RF Rx Instructions: To be taken with 150Mg for total of 450mg/day tiotropium bromide 18 mcg Capsule, W/Inhalation Device 1 cap INHALATION DAILY 0RF Rx Instructions: puncture 1 cap using device; one dose = 2 inhalations albuterol sulfate 2.5 mg /3 mL (0.083 %) solution for nebulization See Rx Instructions .ROUTE .COMPLEX 0RF Label Comments: 1-2 treatments every 20 minutes for 3 doses then 1-4 treatments every 1-4 hours as needed Rx Instructions: 2.5 mg inhaled albuterol sulfate 90 mcg/actuation HFA aerosol inhaler 2 puff INHALATION Q4H PRN (Reason: Wheezing) 0RF Referrals: Onofre Solis MD [Primary Care Provider] - <Cora Jackson MD - Last Filed: 02/14/22 17:56> Cosign ED Attending Cosignature Attestation: I was immediately available in the department for consultation throughout this patient's visit. I agree with documentation as above. Cora Jackson MD
[2022-02-14 12:30] VITALS: PULSE 104; O2SAT 92
== END 2022-02-14 13:12 | disposition home or self-care (01) ==
PROVIDERS: Emergency Provider Student in an Organized Health Care Education/Training Program; PCP Family Medicine
DX: L89.329 Pressure ulcer of left buttock, unspecified stage (principal)
CPT/HCPCS: 99281

== ENCOUNTER 2022-06-22 02:31 | Emergency (ER) | payer OTHER, SELFPAY ==
[2022-06-22] VITALS (20 sets, daily range): BP systolic 133–162; BP diastolic 58–85; PULSE 101–169; RESP 7–27; TEMP 36.2; O2SAT 89–96; BMI 67.8
[2022-06-22 02:46] LABS: Add Manual Diff / Slide Review NO; Basophils Absolute Auto 100 /uL (0-100); Basophils Percent Auto 0.7 % (0-2); Eosinophils Absolute Auto 300 /uL (0-450); Eosinophils Percent Auto 2.3 % (2-4); Hematocrit 43.2 % (36-46); Hemoglobin 13.9 g/dL (12.0-16.0); Lymphocytes Absolute Auto 3100 /uL (1100-4500); Lymphocytes Percent Auto 26.1 % (25-40); Mean Corpuscular HGB Conc 32.1 % (30-36); Mean Corpuscular Hemoglobin 27.6 PG (26-34); Mean Corpuscular Volume 85.8 fL (80-100); Monocytes Absolute Auto 800 /uL (0-900); Monocytes Percent Auto 7.2 % (3-14); Neutrophils Absolute Auto 7500 /uL (1500-7000); Neutrophils Percent Auto 63.7 % (50-75); Platelet Count 237 X10^3/uL (150-400); Red Blood Cell Count 5.04 X10^6/uL (4.0-5.2); Red Cell Distribution Width 15.2 % (11.6-14.8); White Blood Cell Count 11.8 X10^3/uL (4.5-11.0)
[2022-06-22 02:52] LABS: Alanine Aminotransferase 37 IU/L (<50); Albumin Globulin Ratio 1.1 (1.0-2.8); Alkaline Phosphatase 101 U/L (38-126); Aspartate Aminotransferase 34 IU/L (17-59); BUN Creatinine Ratio 20.7 (6-22); Bilirubin Total 0.4 mg/dL (0.2-1.3); Blood Urea Nitrogen 18 mg/dL (9-20); Calcium 9.5 mg/dL (8.4-10.2); Carbon Dioxide 30 mmol/L (22-32); Chloride 94 mmol/L (98-107); Estimated Glomerular Filt Rate > 60 mL/min (>60); Globulin 3.7 g/dL (1.7-4.1); HEMOLYSIS < 15 (0-50); Potassium 4.8 mmol/L (3.4-5.1); Sodium 134 mmol/L (137-145); Total Protein 7.7 g/dL (6.3-8.2)
[2022-06-22 02:55] LABS: Glucose 492 mg/dL (70-100)
[2022-06-22] MEDS: propofoL 200 MG/20 ML VIAL IV (02:58)
[2022-06-22] MEDS: APIXABAN 5 MG TABLET PO (03:19)
--- NOTE | 2022-06-22 04:21 | ED_ITS ---
HPI - Arrhythmia/Palpitations General Chief Complaint: Arrhythmia/Palpitations Stated Complaint: Rapid Afib Time Seen by Provider: 06/22/22 02:38 Source: patient and EMS Mode of arrival: EMS History of Present Illness HPI narrative: 46-year-old female nonsmoker with history of 1 prior episode of AFib, pulmonary hypertension presents by EMS for evaluation of a rapid heart rate that woke her from sleep just prior to arrival. She complains of some dizziness and lightheadedness and mild chest pressure. She states she had 1 prior episode of atrial fibrillation a few years ago and is not on any medications for and has not been to see Cardiology. She denies nausea, vomiting or diarrhea. She denies any fever or chills. She denies any recent medication changes, travel or other changes in her routine. Related Data Home Medications Medication Instructions Recorded Confirmed albuterol sulfate 2.5 mg/3 mL See Rx Instructions .Route .COMPLEX 01/27/22 01/27/22 (0.083 %) solution for nebulization albuterol sulfate 90 mcg/actuation 2 puff inhalation Q4H PRN Wheezing 01/27/22 01/27/22 aerosol inhaler aripiprazole 5 mg tablet 5 mg PO DAILY 01/27/22 01/27/22 bupropion HCl 150 mg 24 hr tablet, 150 mg PO QAM 01/27/22 01/27/22 extended release (Wellbutrin XL) bupropion HCl 300 mg 24 hr tablet, 300 mg PO QAM 01/27/22 01/27/22 extended release (Wellbutrin XL) fluoxetine 10 mg capsule 70 mg PO DAILY 01/27/22 01/27/22 fluticasone 500 mcg-salmeterol 50 1 inh inhalation BID 01/27/22 01/27/22 mcg/dose blistr powdr for inhalation furosemide 20 mg tablet 20 mg PO BID 01/27/22 01/27/22 lamotrigine 25 mg tablet (Lamictal) 75 mg PO DAILY 01/27/22 01/27/22 lisinopril 20 mg tablet 20 mg PO DAILY 01/27/22 01/27/22 montelukast 10 mg tablet 10 mg PO BEDTIME 01/27/22 01/27/22 (Singulair) olanzapine 20 mg tablet (Zyprexa) 20 mg PO BEDTIME 01/27/22 01/27/22 spironolactone 50 mg tablet 50 mg PO DAILY 01/27/22 01/27/22 tiotropium bromide 18 mcg capsule 1 cap inhalation DAILY 01/27/22 01/27/22 with inhalation device Previous Rx's Medication Instructions Recorded apixaban 5 mg (74 tabs) tablets in See Rx Instructions PO .COMPLEX 06/22/22 a dose pack (Drillinginfo DVT-PE Treat #74 ea 30D Start) metformin 500 mg tablet 500 mg PO BID #30 tabs 06/22/22 Allergies Allergy/AdvReac Type Severity Reaction Status Date / Time fexofenadine [From Jazlyn] Allergy Severe Anaphylaxis Verified 02/14/22 10:30 loratadine [From Claritin] Allergy Severe Anaphylaxis Verified 02/14/22 10:30 cyclobenzaprine Allergy Hallucinati Verified 02/14/22 10:30 ng hydrochlorothiazide Allergy Fatigued Verified 02/14/22 10:30 lithium Allergy Verified 02/14/22 10:30 lurasidone Allergy Agitated Verified 02/14/22 10:30 ondansetron Allergy Agitated Verified 02/14/22 10:30 quetiapine [From Seroquel] Allergy Fatigued Verified 02/14/22 10:30 risperidone Allergy Verified 02/14/22 10:30 valproic acid Allergy Fatigued Verified 02/14/22 10:30 ziprasidone Allergy Verified 01/27/22 22:50 Review of Systems Review of Systems Narrative: GENERAL: see HPI HEENT: Denies sinus pain, ear pain, sore throat, difficulty swallowing, dizziness. RESPIRATORY: Denies dyspnea, cough, wheezing, hemoptysis, sputum. CARDIOVASCULAR: see HPI GASTROINTESTINAL: Denies nausea, vomiting, abdominal pain, diarrhea, constipation, melena. : Denies dysuria, frequency, incontinence, hematuria, urinary retention. MUSCULOSKELETAL: denies weakness, joint pain, or bony pain SKIN: Denies rash, skin lesions, or other NEUROLOGIC: Denies weakness, headache, numbness, change in speech, confusion, seizures, incoordination. PSYCHIATRIC: No concerning psychosocial issues. 12 point review of systems is negative except for those stated above Patient History Medical History Asthma Colonic polyp COPD (chronic obstructive pulmonary disease) Pulmonary hypertension Tachycardia Social History (Reviewed 06/22/22 @ 04:24 by JAEL Dietz Smoking Status: Never smoker Smoking Status: Never smoker alcohol intake frequency: 0-2 drinks per day Substance Use Type: does not use Exam Narrative Exam Narrative: GENERAL: [46] year old patient appears stated age. Well-developed patient, in mild distress. BMI 67 HEAD: Atraumatic. Normocephalic. EYES: Pupils equal round and reactive. Extraocular motions intact. No scleral icterus. No injection or drainage. ENT: Nose without bleeding, purulent drainage. Throat without erythema, tonsillar hypertrophy or exudate. Airway patent. NECK: Trachea midline. Non tender CARDIOVASCULAR: Tachycardic and irregular rhythm without murmurs, gallops, or rubs. RESPIRATORY: Clear to auscultation. Breath sounds equal bilaterally. No wheezes, rales, or rhonchi. GASTROINTESTINAL: Abdomen soft, non-tender, nondistended. EXTREMITIES: No edema or joint tenderness. BACK: Nontender without deformity or crepitance. No flank tenderness. NEURO: AOx3. SKIN: No rash or erythema of visible areas Initial Vital Signs Initial Vital Signs: Vital Signs Temperature 97.2 F L 06/22/22 02:35 Pulse Rate 160 H 06/22/22 02:35 Respiratory Rate 22 06/22/22 02:35 Blood Pressure 139/85 06/22/22 02:35 Pulse Oximetry 94 06/22/22 02:35 Oxygen Delivery Method 06/22/22 02:35 Procedures Cardioversion Consent Signed: Yes Indication: Rapid symptomatic AFib with ST depressions Stability: Unstable Number of attempts (shocks): 1 Joules used: 120 Cardiac rhythm post-cardioversion: Normal sinus Procedural Sedation Consent signed: Yes Time out performed: Yes Indication: cardioversion ASA Class: II Mallampati Airway Classification: Class III IV Propofol dose (mg): 120 Intraservice time/total sedation time (min): 12 ED Sedation Level: Moderate (Concious) Complications: none Course Orders Ordered: Discontinued Medications Apixaban (Apixaban 5 Mg Tablet) 5 mg PO NOW ONE Stop: 06/22/22 03:05 Last Admin: 06/22/22 03:19 Dose: 5 mg Documented By: CORKY Propofol (Propofol 200 Mg/20 Ml Vial) 200 mg IV NOW ONE Stop: 06/22/22 02:39 Last Admin: 06/22/22 02:58 Dose: 120 mg Documented By: CORKY Vital Signs Vital signs: Vital Signs - 8 hr 06/22/22 02:35 06/22/22 02:47 06/22/22 03:02 Temperature 97.2 F L Pulse Rate 160 H 169 H 113 H Respiratory Rate 22 17 21 Blood Pressure 139/85 153/62 H 161/74 H Pulse Oximetry 94 92 91 Oxygen Delivery Method Room Air Oxygen Flow Rate 4 06/22/22 03:05 06/22/22 03:10 06/22/22 03:14 Temperature Pulse Rate 110 H 112 H 106 H Respiratory Rate 21 24 19 Blood Pressure 162/64 H 162/63 H 151/63 H Pulse Oximetry 94 94 90 L Oxygen Delivery Method Oxygen Flow Rate 06/22/22 02:56 06/22/22 03:00 06/22/22 03:00 Temperature Pulse Rate 146 H 169 H Respiratory Rate 11 L 19 Blood Pressure 161/74 H Pulse Oximetry 96 93 Oxygen Delivery Method Oxygen Flow Rate 06/22/22 03:06 06/22/22 03:06 06/22/22 03:10 Temperature Pulse Rate 110 H 110 H Respiratory Rate 19 26 H Blood Pressure 162/64 H Pulse Oximetry 95 94 Oxygen Delivery Method Oxygen Flow Rate 06/22/22 03:10 06/22/22 03:16 06/22/22 03:16 Temperature Pulse Rate 108 H Respiratory Rate 19 Blood Pressure 151/63 H 161/72 H Pulse Oximetry 89 L Oxygen Delivery Method Oxygen Flow Rate 06/22/22 03:20 06/22/22 03:20 06/22/22 03:30 Temperature Pulse Rate 108 H Respiratory Rate 14 Blood Pressure 140/58 L 150/67 H Pulse Oximetry 90 L Oxygen Delivery Method Oxygen Flow Rate 06/22/22 03:30 06/22/22 03:40 06/22/22 03:40 Temperature Pulse Rate 105 H 104 H Respiratory Rate 7 L 11 L Blood Pressure 157/71 H Pulse Oximetry 89 L 90 L Oxygen Delivery Method Oxygen Flow Rate 06/22/22 04:00 06/22/22 04:00 Temperature Pulse Rate 106 H Respiratory Rate 8 L Blood Pressure 133/62 Pulse Oximetry 93 Oxygen Delivery Method Oxygen Flow Rate MDM - Arrhythmia/Palpitations Lab Data Result diagrams: 06/22/22 02:43 06/22/22 02:43 Labs: Lab Results 06/22/22 06/22/22 Range/Units 02:43 02:43 WBC 11.8 H (4.5-11.0) X10^3/uL RBC 5.04 (4.0-5.2) X10^6/uL Hgb 13.9 (12.0-16.0) g/dL Hct 43.2 (36-46) % MCV 85.8 (80-100) fL MCH 27.6 (26-34) PG MCHC 32.1 (30-36) % RDW 15.2 H (11.6-14.8) % Plt Count 237 (150-400) X10^3/uL Neut % (Auto) 63.7 (50-75) % Lymph % (Auto) 26.1 (25-40) % [place] % (Auto) 7.2 (3-14) % Eos % (Auto) 2.3 (2-4) % Baso % (Auto) 0.7 (0-2) % Neut # (Auto) 7500 H (3579-4292) /uL Lymph # (Auto) 3100 (0390-7049) /uL [place] # (Auto) 800 (0-900) /uL Eos # (Auto) 300 (0-450) /uL Baso # (Auto) 100 (0-100) /uL Sodium 134 L (137-145) mmol/L Potassium 4.8 (3.4-5.1) mmol/L Chloride 94 L (98-107) mmol/L Carbon Dioxide 30 (22-32) mmol/L BUN 18 (9-20) mg/dL Creatinine 0.87 (0.66-1.25) mg/dL Estimated GFR > 60 (>60) mL/min BUN/Creatinine Ratio 20.7 (6-22) Glucose 492 H* (70-100) mg/dL Calcium 9.5 (8.4-10.2) mg/dL Total Bilirubin 0.4 (0.2-1.3) mg/dL AST 34 (17-59) IU/L ALT 37 (<50) IU/L Alkaline Phosphatase 101 (38-126) U/L Total Protein 7.7 (6.3-8.2) g/dL Albumin 4.0 (3.5-5.0) g/dL Globulin 3.7 (1.7-4.1) g/dL Albumin/Globulin Ratio 1.1 (1.0-2.8) Point of Care Testing Test Results Negative Glucose POC 417 Discharge Plan Departure Patient Disposition: Home Clinical Impression: Atrial fibrillation, Acute hyperglycemia Instructions: DI for Atrial Fibrillation, DI for Hyperglycemia -- Adult Activity Restrictions/Additional Instructions: *You have been diagnosed with [rapid atrial fibrillation with cardioversion and hyperglycemia] *What to do: *Please continue to take your regular medications as directed. [ x] New medication prescriptions sent to your pharmacy: [[facility]] [ ] New medication written as a paper prescription [ ] No new medications given *Please follow up with your primary care provider in 2-3 days, call for an appointment. Let them know you were seen in the Emergency Department and that we ask that you be seen in follow up. We will electronically transmit a record of today's note if your PCP is in our system * as we discussed please reach out to the cardiology group at [facility] for follow-up to evaluate for your atrial fibrillation. I have included contact info below. Please call, let them know that you were seen in the emergency department and we would like you to be seen in follow-up *Return to Emergency Department if you should have any new, worsening or concerning symptoms Prescriptions: New Eliquis DVT-PE Treat 30D Start 5 mg (74 tabs) tablets,dose pack See Rx Instructions .ROUTE .COMPLEX Qty: 74 0RF Rx Instructions: orally per package directions metformin 500 mg tablet 500 mg PO BID Qty: 30 0RF No Action lisinopril 20 mg Tablet 20 mg PO DAILY lamotrigine [Lamictal] 25 mg Tablet 75 mg PO DAILY fluticasone propion-salmeterol 500-50 mcg/dose Blister With Device 1 inh INHALATION BID fluoxetine 10 mg Capsule 70 mg PO DAILY montelukast [Singulair] 10 mg Tablet 10 mg PO BEDTIME furosemide 20 mg Tablet 20 mg PO BID olanzapine [Zyprexa] 20 mg Tablet 20 mg PO BEDTIME spironolactone 50 mg Tablet 50 mg PO DAILY aripiprazole 5 mg Tablet 5 mg PO DAILY bupropion HCl [Wellbutrin XL] 300 mg Tablet Extended Release 24 Hr 300 mg PO QAM Rx Instructions: To be taken with 150Mg for total of 450mg/day bupropion HCl [Wellbutrin XL] 150 mg Tablet Extended Release 24 Hr 150 mg PO QAM Rx Instructions: To be taken with 150Mg for total of 450mg/day tiotropium bromide 18 mcg Capsule, W/Inhalation Device 1 cap INHALATION DAILY Rx Instructions: puncture 1 cap using device; one dose = 2 inhalations albuterol sulfate 2.5 mg /3 mL (0.083 %) solution for nebulization See Rx Instructions .ROUTE .COMPLEX Label Comments: 1-2 treatments every 20 minutes for 3 doses then 1-4 treatments every 1-4 hours as needed Rx Instructions: 2.5 mg inhaled albuterol sulfate 90 mcg/actuation HFA aerosol inhaler 2 puff INHALATION Q4H PRN (Reason: Wheezing) Referrals: Rasta Thompson MD [Non-Staff] - Onofre Solis MD [Primary Care Provider] - Visit Report Forms: Patient Portal/API
== END 2022-06-22 05:22 | disposition home or self-care (01) ==
PROVIDERS: Emergency Provider Emergency Medicine; PCP Family Medicine
DX: I48.91 Unspecified atrial fibrillation (principal); R73.9 Hyperglycemia, unspecified; R42 Dizziness and giddiness; R07.9 Chest pain, unspecified; Z79.899 Other long term (current) drug therapy
CPT/HCPCS: 80053; 82962; 85025; 92960; 93005; 99152; 99285; J2704

== ENCOUNTER → 2023-02-20 17:19 | Outpatient (ROUT) | payer OTHER, SELFPAY | PROVIDERS: PCP Family Medicine; Visit Provider Dermatology | DX: L08.9 Local infection of the skin and subcutaneous tissue, unspecified (principal) | CPT/HCPCS: 87070; 87075; 87147; 87205 ==

== ENCOUNTER 2024-03-10 08:31 | Emergency (ER) | payer OTHER, SELFPAY ==
[2024-03-10] VITALS (12 sets, daily range): BP systolic 148–187; BP diastolic 81–96; PULSE 86–108; RESP 13–26; TEMP 36.4; O2SAT 91–98; BMI 61.6
--- NOTE | 2024-03-10 09:16 | DI.CT.S_ITS ---
PROCEDURE: CT HEAD/BRAIN WO CON INDICATIONS: Left arm numbness TECHNIQUE: Noncontrast 4.5 mm thick angled axial sections acquired from the foramen magnum to the vertex, with coronal and sagittal reformats. For radiation dose reduction, the following was used: automated exposure control, adjustment of mA and/or kV according to patient size. COMPARISON: [facility], CR, XR CHEST 1V, 01/27/2022, 23:02. FINDINGS: Image quality: Diagnostic. CSF spaces: Basal cisterns are patent. No extra-axial fluid collections. Ventricles are normal in size and shape. Brain: Streak artifact limits evaluation of the cerebellar hemispheres. No midline shift. No intracranial masses or hemorrhage. Redd-white matter interface is normal. Skull and face: Calvarium and visualized facial bones are intact, without suspicious lesions. Sinuses: Visualized sinuses and mastoids are clear. IMPRESSION: 1. Limited study given marked streak artifact of the cerebellar hemispheres. 2. No acute intracranial findings where visualized. Dictated by: Corazon Walker M.D. on 03/10/2024 at 9:38 Approved by: Corazon Walker M.D. on 03/10/2024 at 9:41
--- NOTE | 2024-03-10 09:18 | ED.WEAKNESS ---
HPI - Weakness General Chief complaint: Weakness Stated complaint: tremor left arm/pins and needles Time Seen by Provider: 03/10/24 08:48 Source: patient Mode of arrival: Wheelchair History of Present Illness HPI Narrative: Patient here with mother. Has multiple complaints, some are recent some are chronic. Patient has provided a list of items that has been bothersome. Patient complains of left hand and forearm numbness and tingling with tremors that started about a week ago. No new medications no injury. Denies any neck pain with this. Patient also complains of feeling very tired fatigued for the past 7 days. Patient has slept up to 20 hours a day. Patient missed a week of work last week. Patient states this is not feel like depression. Patient states feels exhausted. Patient also complains of tremors in hands left greater than right. This started months ago. Patient has dropped items while holding them. Patient complains off and on for months of urinary incontinence due to urgency also has diarrhea. Patient has not seen urologist or GI for this. Did have colonoscopy years ago with noncancerous polyps. No black or bloody stools. Patient also complains double vision that has been going on most of patient's life. Patient does wear glasses. Has done years of vision therapy. However has not seen fabricating machine operator or bulb weeder in 1-2 years. Patient does have history of diabetes, uses a rolling walker. History of compression fracture. His postoperative male to female transgender. Uses as needed nasal cannula oxygen at home but has not required this recently. Mother states no history of Parkinson's in the family or multiple sclerosis or lupus. Patient has not been diagnosed with any thyroid disease. Patient denies any chest pain or shortness of breath Related Data Home Medications Medication Instructions Recorded Confirmed albuterol sulfate 2.5 mg/3 mL See Rx Instructions .Route .COMPLEX 01/27/22 01/27/22 (0.083 %) solution for nebulization albuterol sulfate 90 mcg/actuation 2 puff inhalation Q4H PRN Wheezing 01/27/22 01/27/22 aerosol inhaler aripiprazole 5 mg tablet 5 mg PO DAILY 01/27/22 01/27/22 bupropion HCl 150 mg 24 hr tablet, 150 mg PO QAM 01/27/22 01/27/22 extended release (Wellbutrin XL) bupropion HCl 300 mg 24 hr tablet, 300 mg PO QAM 01/27/22 01/27/22 extended release (Wellbutrin XL) fluoxetine 10 mg capsule 70 mg PO DAILY 01/27/22 01/27/22 fluticasone 500 mcg-salmeterol 50 1 inh inhalation BID 01/27/22 01/27/22 mcg/dose blistr powdr for inhalation furosemide 20 mg tablet 20 mg PO BID 01/27/22 01/27/22 lamotrigine 25 mg tablet (Lamictal) 75 mg PO DAILY 01/27/22 01/27/22 lisinopril 20 mg tablet 20 mg PO DAILY 01/27/22 01/27/22 montelukast 10 mg tablet 10 mg PO BEDTIME 01/27/22 01/27/22 (Singulair) olanzapine 20 mg tablet (Zyprexa) 20 mg PO BEDTIME 01/27/22 01/27/22 spironolactone 50 mg tablet 50 mg PO DAILY 01/27/22 01/27/22 tiotropium bromide 18 mcg capsule 1 cap inhalation DAILY 01/27/22 01/27/22 with inhalation device Previous Rx's Medication Instructions Recorded apixaban 5 mg (74 tabs) tablets in See Rx Instructions PO .COMPLEX 06/22/22 a dose pack (STWA DVT-PE Treat #74 ea 30D Start) metformin 500 mg tablet 500 mg PO BID #30 tabs 06/22/22 Allergies Allergy/AdvReac Type Severity Reaction Status Date / Time fexofenadine [From Jazlyn] Allergy Severe Anaphylaxis Verified 03/10/24 08:42 loratadine [From Claritin] Allergy Severe Anaphylaxis Verified 03/10/24 08:42 cyclobenzaprine Allergy Hallucinati Verified 03/10/24 08:42 ng hydrochlorothiazide Allergy Fatigued Verified 03/10/24 08:42 lithium Allergy Verified 03/10/24 08:42 lurasidone Allergy Agitated Verified 03/10/24 08:42 ondansetron Allergy Agitated Verified 03/10/24 08:42 quetiapine [From Seroquel] Allergy Fatigued Verified 03/10/24 08:42 risperidone Allergy Verified 03/10/24 08:42 valproic acid Allergy Fatigued Verified 03/10/24 08:42 ziprasidone Allergy Verified 03/10/24 08:42 Review of Systems Review of Systems Narrative: GENERAL: negative chills, positive fatigue, malaise, negative fever, sweats. HEENT: negative sinus pain, ear pain, sore throat RESPIRATORY: negative dyspnea, cough CARDIOVASCULAR: negative chest pain, palpitations GASTROINTESTINAL: negative nausea, vomiting, abdominal pain, positive diarrhea : negative dysuria, positive frequency, negative hematuria MUSCULOSKELETAL: negative muscle or bony pain SKIN: negative rash, skin lesions NEUROLOGIC: negative weakness, positive numbness, positive tremor Patient History Medical History Colonic polyp Tachycardia Pulmonary hypertension COPD (chronic obstructive pulmonary disease) Asthma Social History Smoking Status: Never smoker Smoking Status: Never smoker alcohol intake frequency: 0-2 drinks per day Substance Use Type: does not use Exam Narrative Exam Narrative: GENERAL: in no distress, not toxic not dyspneic, patient with large habitus. HEAD: Normocephalic. EYES: Pupils equal round ENT: Mucous membranes moist. NECK: Trachea midline. No palpable thyromegaly CARDIOVASCULAR: Regular rate and rhythm RESPIRATORY: Clear to auscultation. Breath sounds equal bilaterally. No wheezes, rales, or rhonchi. GASTROINTESTINAL: Abdomen soft, non-tender EXTREMITIES: No gross deformities. BACK: No flank tenderness. NEURO: AOx4. Clear speech no facial droop, has resting left hand tremor. Is able to stop this with intention and gripping. Light touch intact bilateral face and hands. Fast exam is negative. Clear speech no facial droop. Negative pronator drift. Light touch bilateral legs SKIN: Warm and dry PSYCH: Not anxious, is cooperative Initial Vital Signs Initial Vital Signs: Vital Signs Temperature 97.6 F 03/10/24 08:35 Pulse Rate 103 H 03/10/24 08:35 Respiratory Rate 16 03/10/24 08:35 Blood Pressure 148/86 H 03/10/24 08:35 Pulse Oximetry 97 03/10/24 08:35 Oxygen Delivery Method Room Air 03/10/24 08:35 Course Orders Ordered: Discontinued Medications Sodium Chloride (Normal Saline 0.9%) 1,000 mls @ 1,000 mls/hr IV BOLUS ONE Stop: 03/10/24 10:15 Last Infusion: 03/10/24 12:32 Dose: Infused Documented By: Admin: 03/10/24 10:02 Dose: 1,000 mls/hr Documented By: QASIM Vital Signs Vital signs: Vital Signs - 8 hr 03/10/24 08:35 03/10/24 08:47 03/10/24 08:50 Temperature 97.6 F Pulse Rate 103 H 108 H Respiratory Rate 16 Blood Pressure 148/86 H 187/96 H Pulse Oximetry 97 93 Oxygen Delivery Method Room Air 03/10/24 08:50 03/10/24 09:00 03/10/24 09:33 Temperature Pulse Rate 104 H 99 H Respiratory Rate 26 H 23 Blood Pressure Pulse Oximetry 95 95 98 Oxygen Delivery Method 03/10/24 10:00 03/10/24 10:30 03/10/24 11:00 Temperature Pulse Rate 97 H 91 H 90 Respiratory Rate 20 13 19 Blood Pressure Pulse Oximetry 93 94 91 Oxygen Delivery Method 03/10/24 11:30 03/10/24 12:00 Temperature Pulse Rate 88 87 Respiratory Rate 18 19 Blood Pressure Pulse Oximetry 93 94 Oxygen Delivery Method MDM - Weakness Lab Data 03/10/24 09:25 03/10/24 09:25 Labs: Lab Results 03/10/24 03/10/24 03/10/24 Range/Units 09:25 11:45 11:45 WBC 11.4 H (4.5-11.0) X10^3/uL RBC 4.67 (4.5-5.9) X10^6/uL Hgb 13.5 (13.5-17.5) g/dL Hct 40.8 L (41-53) % MCV 87.4 (80-100) fL MCH 29.0 (26-34) PG MCHC 33.2 (30-36) % RDW 15.0 H (11.6-14.8) % Plt Count 280 (150-400) X10^3/uL Neut % (Auto) 64.8 (50-75) % Lymph % (Auto) 26.8 (25-40) % [place] % (Auto) 6.0 (3-14) % Eos % (Auto) 1.6 L (2-4) % Baso % (Auto) 0.8 (0-2) % Neut # (Auto) 7400 H (1604-2629) /uL Lymph # (Auto) 3100 (9490-6963) /uL [place] # (Auto) 700 (0-900) /uL Eos # (Auto) 200 (0-450) /uL Baso # (Auto) 100 (0-100) /uL Sodium 139 (137-145) mmol/L Potassium 3.5 (3.4-5.1) mmol/L Chloride 100 (98-107) mmol/L Carbon Dioxide 35 H (22-32) mmol/L BUN 18 (9-20) mg/dL Creatinine 1.02 (0.66-1.25) mg/dL Estimated GFR > 60 (>60) mL/min BUN/Creatinine Ratio 17.6 (6-22) Glucose 131 H (70-100) mg/dL Calcium 9.5 (8.4-10.2) mg/dL Magnesium 2.1 (1.6-2.3) mg/dL Total Bilirubin 0.5 (0.2-1.3) mg/dL AST 24 (17-59) IU/L ALT 21 (<50) IU/L Alkaline Phosphatase 96 (38-126) U/L Total Protein 7.2 (6.3-8.2) g/dL Albumin 4.1 (3.5-5.0) g/dL Globulin 3.1 (1.7-4.1) g/dL Albumin/Globulin Ratio 1.3 (1.0-2.8) TSH 0.618 (0.47-4.68) uIU/mL Urine Color Yellow Urine Appearance Clear Urine pH 6.0 Normal (4.5-8.0) Ur Specific [place] 1.010 (1.000-1.035) Urine Protein Negative (Negative) Urine Glucose (UA) Negative (Negative) g/dL Urine Ketones Negative (NEGATIVE) Urine Occult Blood 1+ H (Negative) Urine Nitrate Negative (Negative) Urine Bilirubin Negative (NEGATIVE) Urine Urobilinogen 1.0 (0.2) E.U./dL Ur Leukocyte Esterase Negative (NEGATIVE) Urine RBC 5-10/hpf H (0-5/HPF) Urine WBC 1-5/hpf (0-5/HPF) Ur Squamous Epith Cells 1-5 /hpf (0-5/HPF) Urine Bacteria Occasional (0-1) (None) Ur Culture Indicated? Cult not indicated Vol Urine Centrifuged 10ml (spun) U Opiates 300ng/mL cut Negative (Negative) Ur Oxycodone Screen Negative (Negative) Urine Methadone Screen Negative (Negative) Ur Barbiturates Screen Negative (Negative) U Tricyclic Antidepress Negative (Negative) Ur Phencyclidine Scrn Negative (Negative) Ur Amphetamines Screen Negative (Negative) U Methamphetamines Scrn Negative (Negative) Ur MDMA Scrn (Ecstasy) Negative (Negative) U Benzodiazepines Scrn Negative (Negative) Urine Cocaine Screen Negative (Negative) U Marijuana (THC) Screen Negative (Negative) Urine Specific [place] Normal (Normal) Ur Creatinine Normal (Normal) Imaging Data CT scan - head: Radiologist Impression: [address] [address] [address] Scan Report Signed Patient: Silke Miller MR#: [id number] : 1975 Acct:[id number] Age/Sex: 48 / M Date of Service: 03/10/24 Loc: ED Accession Number: [id number] Procedure: CT head/brain wo con Ordering Provider: Ronni Voss MD PROCEDURE: CT HEAD/BRAIN WO CON INDICATIONS: Left arm numbness TECHNIQUE: Noncontrast 4.5 mm thick angled axial sections acquired from the foramen magnum to the vertex, with coronal and sagittal reformats. For radiation dose reduction, the following was used: automated exposure control, adjustment of mA and/or kV according to patient size. COMPARISON: [facility], CR, XR CHEST 1V, 01/27/2022, 23:02. FINDINGS: Image quality: Diagnostic. CSF spaces: Basal cisterns are patent. No extra-axial fluid collections. Ventricles are normal in size and shape. Brain: Streak artifact limits evaluation of the cerebellar hemispheres. No midline shift. No intracranial masses or hemorrhage. Redd-white matter interface is normal. Skull and face: Calvarium and visualized facial bones are intact, without suspicious lesions. Sinuses: Visualized sinuses and mastoids are clear. IMPRESSION: 1. Limited study given marked streak artifact of the cerebellar hemispheres. 2. No acute intracranial findings where visualized. Dictated by: Corazon Walker M.D. on 03/10/2024 at 9:38 Approved by: Corazon Walker M.D. on 03/10/2024 at 9:41 MDM Narrative Medical decision making narrative: Patient here with mother. Has multiple complaints, some are recent some are chronic. Patient has provided a list of items that has been bothersome. Patient complains of left hand and forearm numbness and tingling with tremors that started about a week ago. No new medications no injury. Denies any neck pain with this. Patient also complains of feeling very tired fatigued for the past 7 days. Patient has slept up to 20 hours a day. Patient missed a week of work last week. Patient states this is not feel like depression. Patient states feels exhausted. Patient also complains of tremors in hands left greater than right. This started months ago. Patient has dropped items while holding them. Patient complains off and on for months of urinary incontinence due to urgency also has diarrhea. Patient has not seen urologist or GI for this. Did have colonoscopy years ago with noncancerous polyps. No black or bloody stools. Patient also complains double vision that has been going on most of patient's life. Patient does wear glasses. Has done years of vision therapy. However has not seen fabricating machine operator or bulb weeder in 1-2 years. Patient does have history of diabetes, uses a rolling walker. History of compression fracture. His postoperative male to female transgender. Uses as needed nasal cannula oxygen at home but has not required this recently. Mother states no history of Parkinson's in the family or multiple sclerosis or lupus. Patient has not been diagnosed with any thyroid disease. Patient denies any chest pain or shortness of breath Patient denies any neck pain or chronic neck problems. Patient states did have AFib and on Eliquis but no longer has this she states. No blood clots in legs or lungs in the past, denies any limb weakness After history and exam CBC CMP magnesium CT head TSH urinalysis normal saline MDM Medical records reviewed: No recent visit for this complaint Differential considered: Includes but not limited to MS Parkinson's electrolyte imbalance UTI cervical radiculopathy hypothyroidism, diabetic retinopathy Lab Test results independently reviewed as above. Pertinent findings: WBC 11.4 hemoglobin 13.5 sodium 139 potassium 3.5 BUN 18 creatinine 1.02 GFR greater than 60 glucose 131 TSH 0.618 urinalysis negative ketones negative nitrate negative leukocyte drug screen negative magnesium 2.1 Independently reviewed EKG, no cardiopulmonary complaints. Not indicated at this time Imaging studies independently reviewed: CT head no acute finding Consultations: None indicated this time Treatments: Normal saline Re-evaluations: 12:48 p.m.. Patient has no tremors in the left hand at this time. Reviewed results with patient and mother. They agree for discharge and follow up with primary care. I will give referral for Urology and General surgery for her urinary complaints and diarrhea complaints. She will see family doctor for referral for Neurology. No urgent MRI indicated this time. Given length of duration of symptoms more than a week. Discussion: Appropriate for discharge home. Exam and laboratory studies and imaging studies so far reassuring. Patient can have outpatient evaluation for her multiple complaints. She agrees with this plan. Currently asymptomatic at time of discharge. Return precautions reviewed. Patient and mother desire discharge home Diagnosis: Paresthesia/tremors Discharge Plan Departure Patient Disposition: Home Clinical Impression: Paresthesia and pain of left extremity, Tremor Instructions: DI for Numbness/Tingling, DI for Benign Essential Tremor Activity Restrictions/Additional Instructions: Your laboratory studies and imaging studies are reassuring at this time. Please call provided urology office and general surgery office for re-evaluation of your urinary complaints and abdominal complaints. Please see your family doctor for referral for Neurology for your tremors. Please continue home medications. Return if worse if any questions or concerns Prescriptions: No Action lisinopril 20 mg Tablet 20 mg PO DAILY lamotrigine [Lamictal] 25 mg Tablet 75 mg PO DAILY fluticasone propion-salmeterol 500-50 mcg/dose Blister With Device 1 inh INHALATION BID fluoxetine 10 mg Capsule 70 mg PO DAILY montelukast [Singulair] 10 mg Tablet 10 mg PO BEDTIME furosemide 20 mg Tablet 20 mg PO BID olanzapine [Zyprexa] 20 mg Tablet 20 mg PO BEDTIME spironolactone 50 mg Tablet 50 mg PO DAILY aripiprazole 5 mg Tablet 5 mg PO DAILY bupropion HCl [Wellbutrin XL] 300 mg Tablet Extended Release 24 Hr 300 mg PO QAM Rx Instructions: To be taken with 150Mg for total of 450mg/day bupropion HCl [Wellbutrin XL] 150 mg Tablet Extended Release 24 Hr 150 mg PO QAM Rx Instructions: To be taken with 150Mg for total of 450mg/day tiotropium bromide 18 mcg Capsule, W/Inhalation Device 1 cap INHALATION DAILY Rx Instructions: puncture 1 cap using device; one dose = 2 inhalations albuterol sulfate 2.5 mg /3 mL (0.083 %) solution for nebulization See Rx Instructions .ROUTE .COMPLEX Patient Comments: 1-2 treatments every 20 minutes for 3 doses then 1-4 treatments every 1-4 hours as needed Rx Instructions: 2.5 mg inhaled albuterol sulfate 90 mcg/actuation HFA aerosol inhaler 2 puff INHALATION Q4H PRN (Reason: Wheezing) Eliquis DVT-PE Treat 30D Start 5 mg (74 tabs) tablets,dose pack See Rx Instructions .ROUTE .COMPLEX Qty: 74 0RF Rx Instructions: orally per package directions metformin 500 mg tablet 500 mg PO BID Qty: 30 0RF Referrals: Vinicius Espinoza MD [Physician] - Jh Mcintyre MD [Physician] - Onofre Solis MD [Primary Care Provider] - Stand Alone Forms: Patient Portal/API
[2024-03-10 09:41] LABS: Add Manual Diff / Slide Review NO; Basophils Absolute Auto 100 /uL (0-100); Basophils Percent Auto 0.8 % (0-2); Eosinophils Absolute Auto 200 /uL (0-450); Eosinophils Percent Auto 1.6 % (2-4); Hematocrit 40.8 % (41-53); Hemoglobin 13.5 g/dL (13.5-17.5); Lymphocytes Absolute Auto 3100 /uL (1100-4500); Lymphocytes Percent Auto 26.8 % (25-40); Mean Corpuscular HGB Conc 33.2 % (30-36); Mean Corpuscular Volume 87.4 fL (80-100); Monocytes Absolute Auto 700 /uL (0-900); Neutrophils Absolute Auto 7400 /uL (1500-7000); Neutrophils Percent Auto 64.8 % (50-75); Platelet Count 280 X10^3/uL (150-400); Red Blood Cell Count 4.67 X10^6/uL (4.5-5.9); White Blood Cell Count 11.4 X10^3/uL (4.5-11.0)
[2024-03-10 09:54] LABS: Alanine Aminotransferase 21 IU/L (<50); Albumin 4.1 g/dL (3.5-5.0); Albumin Globulin Ratio 1.3 (1.0-2.8); Alkaline Phosphatase 96 U/L (38-126); Aspartate Aminotransferase 24 IU/L (17-59); BUN Creatinine Ratio 17.6 (6-22); Bilirubin Total 0.5 mg/dL (0.2-1.3); Blood Urea Nitrogen 18 mg/dL (9-20); Calcium 9.5 mg/dL (8.4-10.2); Carbon Dioxide 35 mmol/L (22-32); Chloride 100 mmol/L (98-107); Estimated Glomerular Filt Rate > 60 mL/min (>60); Globulin 3.1 g/dL (1.7-4.1); Glucose 131 mg/dL (70-100); HEMOLYSIS < 15 (0-50); Magnesium 2.1 mg/dL (1.6-2.3); Potassium 3.5 mmol/L (3.4-5.1); Sodium 139 mmol/L (137-145); Total Protein 7.2 g/dL (6.3-8.2)
[2024-03-10] MEDS: SODIUM CHLORIDE 0.9% 1,000 ML 1000 ML IV (10:02)
[2024-03-10 10:37] LABS: Thyroid Stimulating Hormone 0.618 uIU/mL (0.47-4.68)
[2024-03-10 12:02] LABS: UR Morphine/Opiate cutoff 300 Negative (Negative); Ur Creatinine Normal (Normal); Ur Specific Gravity Normal (Normal); Urine Amphetamines Negative (Negative); Urine Barbiturates Negative (Negative); Urine Benzodiazepines Negative (Negative); Urine Cocaine Negative (Negative); Urine MDMA Negative (Negative); Urine Methadone Negative (Negative); Urine Methamphetamines Negative (Negative); Urine Oxycodone Negative (Negative); Urine Phencyclidine Negative (Negative); Urine Tetrahydrocannabinol Negative (Negative); Urine Tricyclic Antidepressant Negative (Negative); Urine pH Normal (Normal)
[2024-03-10 12:23] LABS: Appearance Urine UA CLEAR; Bilirubin Urine UA NEGATIVE (NEGATIVE); Color Urine UA YELLOW; Glucose Urine UA NEGATIVE (Negative); Ketones Urine UA NEGATIVE (NEGATIVE); Leukocyte Esterase Urine UA NEGATIVE (NEGATIVE); Nitrite Urine UA NEGATIVE (Negative); Occult Blood Urine UA 1+ (Negative); Protein Urine UA NEGATIVE (Negative)
[2024-03-10 12:31] LABS: Bacteria Urine Occasional (0-1); Culture Indicated Urine Cult Not Indicated; RBC Urine 5-10/HPF (0-5/HPF); Squamous Epithelial Cell Urine 1-5 /HPF (0-5/HPF); Urine Volume 10mL (spun); WBC Urine 1-5/HPF (0-5/HPF)
== END 2024-03-10 13:01 | disposition home or self-care (01) ==
PROVIDERS: Emergency Provider Emergency Medicine; PCP Family Medicine
DX: R25.1 Tremor, unspecified (principal); R20.2 Paresthesia of skin; Z79.899 Other long term (current) drug therapy
CPT/HCPCS: 36415; 70450; 80053; 80305; 81001; 83735; 84443; 85025; 96360; 96361; 99284

== ENCOUNTER → 2024-05-09 08:07 | Outpatient (CLI) | payer OTHER, SELFPAY | PROVIDERS: PCP Family Medicine; Referring Provider Internal Medicine Critical Care Medicine; Visit Provider Internal Medicine Critical Care Medicine | DX: J44.9 Chronic obstructive pulmonary disease, unspecified (principal); R94.2 Abnormal results of pulmonary function studies | CPT/HCPCS: 94060; 94726; 94729 ==

== ENCOUNTER → 2024-06-12 16:31 | Outpatient (CLI) | payer OTHER, SELFPAY ==
[2024-06-12 17:22] LABS: Add Manual Diff / Slide Review NO; Basophils Absolute Auto 100 /uL (0-100); Basophils Percent Auto 0.4 % (0-2); Eosinophils Absolute Auto 200 /uL (0-450); Eosinophils Percent Auto 1.3 % (2-4); Hematocrit 43.2 % (41-53); Hemoglobin 13.9 g/dL (13.5-17.5); Lymphocytes Absolute Auto 3000 /uL (1100-4500); Lymphocytes Percent Auto 22.1 % (25-40); Mean Corpuscular HGB Conc 32.2 % (30-36); Mean Corpuscular Hemoglobin 28.8 PG (26-34); Mean Corpuscular Volume 89.4 fL (80-100); Monocytes Absolute Auto 900 /uL (0-900); Monocytes Percent Auto 6.4 % (3-14); Neutrophils Absolute Auto 9500 /uL (1500-7000); Neutrophils Percent Auto 69.8 % (50-75); Platelet Count 295 X10^3/uL (150-400); Red Blood Cell Count 4.83 X10^6/uL (4.5-5.9); Red Cell Distribution Width 15.1 % (11.6-14.8); White Blood Cell Count 13.7 X10^3/uL (4.5-11.0)
[2024-06-12 17:38] LABS: Alanine Aminotransferase 21 IU/L (<50); Albumin 3.9 g/dL (3.5-5.0); Albumin Globulin Ratio 1.1 (1.0-2.8); Alkaline Phosphatase 106 U/L (38-126); Aspartate Aminotransferase 23 IU/L (17-59); BUN Creatinine Ratio 16.8 (6-22); Bilirubin Total 0.4 mg/dL (0.2-1.3); Blood Urea Nitrogen 17 mg/dL (9-20); Calcium 9.9 mg/dL (8.4-10.2); Carbon Dioxide 32 mmol/L (22-32); Chloride 102 mmol/L (98-107); Estimated Glomerular Filt Rate > 60 mL/min (>60); Globulin 3.5 g/dL (1.7-4.1); Glucose 111 mg/dL (70-100); HEMOLYSIS < 15 (0-50); Sodium 138 mmol/L (137-145); Total Protein 7.4 g/dL (6.3-8.2)
== END ==
PROVIDERS: PCP Family Medicine; Referring Provider Dermatology; Visit Provider Dermatology
DX: L40.8 Other psoriasis (principal)
CPT/HCPCS: 36415; 80053; 85025; 86480

== ENCOUNTER → 2024-06-24 06:59 | Outpatient (CLI) | payer OTHER, SELFPAY ==
--- NOTE | 2024-06-24 07:00 | DI.ECHO.S_ITS ---
[facility]---------+ [facility] : : [address] : : [place] : : [address] : : Phone: [phone] Echocardiogram Report + + :Name: SONG WESLEY Study Date: 06/24/2024 Height: 72 in : :Hospital ReadingLocation: Weight: 450 lb: : Gender: Male BSA: 3.0 m2 : :: 1975 Age: 48 yrs : :Reason For Study: PULMONARY ARTERY HYPERTENSION : :Ordering Physician: KELSEY, : :NICKO Performed By: Faye Banks : :Referring: NICKO COLE : + + Interpretation Summary The left ventricle is borderline dilated. The ejection fraction is estimated to be 65-70%. There are no obvious focal wall motion abnormalities noted but poor endocardial definition reduces the sensitivity for the detection of such. Diastolic parameters suggest a pseudonormalization pattern, consistent with probable elevated filling pressures. The right ventricle is mildly dilated. The right ventricular systolic function is normal. Right ventricular systolic pressure is estimated to be 43 mmHg plus the clinically estimated CVP which cannot be estimated on this exam. The mitral valve mean gradient is 5.2 mmHg. The aortic root is normal size. Procedure: A two-dimensional transthoracic echocardiogram with color flow and Doppler was performed. There is no prior echocardiogram noted for this patient. The study quality was technically difficult. A contrast injection of Definity was performed to improve assessment of LV function. The patient was in sinus tachycardia with heart rates between 94-108 bpm during the exam. Left Ventricle: The left ventricle is borderline dilated. Left ventricular wall thickness is at the upper limits of normal. The ejection fraction is estimated to be 65-70%. There are no obvious focal wall motion abnormalities noted but poor endocardial definition reduces the sensitivity for the detection of such. Diastolic parameters suggest a pseudonormalization pattern, consistent with probable elevated filling pressures. Right Ventricle: The right ventricle is mildly dilated. The right ventricular systolic function is normal. Atria: The left atrial size is normal. Right atrial size is normal. There is no Doppler evidence for an interatrial shunt. Mitral Valve: The mitral valve is normal in structure and function. The mitral valve mean gradient is 5.2 mmHg. There is trace mitral regurgitation. Aortic Valve: The aortic valve is trileaflet. The aortic valve opens well. The peak aortic velocity is 2.5 m/sec. The aortic valve mean gradient is 26 mmHg. No aortic regurgitation is present. Tricuspid Valve: The tricuspid valve leaflets are thin and pliable. There is mild tricuspid regurgitation. Right ventricular systolic pressure is estimated to be 43 mmHg plus the clinically estimated CVP which cannot be estimated on this exam. Pulmonic Valve: The pulmonic valve is not well visualized. There is no pulmonic valvular regurgitation. Great Vessels: The aortic root is normal size. The dimensions of the ascending aorta are normal. The inferior vena cava was not well visualized. Pericardium/ Pleura There is no pericardial effusion. There is no pleural effusion. MMode/2D Measurements & Calculations LVIDd: 6.0 cm LVOT diam: 2.0 cm LVIDs: 3.7 cm Ao root diam: 2.6 cm FS: 37.9 % asc Aorta Diam: 3.1 cm IVSd: 1.2 cm LVPWd: 0.97 cm LV malave. diameter/BSA (cm/m^2): 2.0 LV sys. diameter/BSA (cm/m^2): 1.2 LA A2 area: 23.6 cm2 RA long axis: 5.1 cm LA A4 area: 21.5 cm2 RA area: 16.6 cm2 LA length (vol): 5.6 cm RA vol: 45.7 ml LA vol: 77.2 ml RA : 15.2 ml/m2 LA vol index: 25.7 ml/m2 RVD1 (basal): 4.4 cm TAPSE: 2.2 cm Doppler Measurements & Calculations Ao V2 max: 254.3 cm/sec LVOT Max Don[place]: 125.2 cm/sec Ao V2 mean: 190.1 cm/sec LV V1 max P.3 mmHg Ao max P.9 mmHg LV V1 VTI: 25.3 cm Ao mean P.8 mmHg MIKE(I,D): 1.7 cm2 Ao V2 VTI: 46.1 cm MIKE(V,D): 1.5 cm2 sev ratio: 0.55 MIKE indexed to BSA (cm^2/m^2): 0.57 MV E max donavon: 136.9 cm/sec TR max donavon: 336.0 cm/sec MV A max donavon: 130.8 cm/sec TR max P.2 mmHg MV E/A: 1.0 PA V2 max: 139.4 cm/sec Med Peak E' Donavon: 8.7 cm/sec PA V2 mean: 104.9 cm/sec E/E' med: 15.7 PA mean P.7 mmHg Lat Peak E' Donavon: 7.0 cm/sec PA pr(Accel): 3.6 mmHg E/E' lat: 19.6 E/e' average: 17.7 MV dec time: 0.11 sec MVA(VTI): 2.4 cm2 MV V2 mean: 107.0 cm/sec SV(LVOT): 78.8 ml MV mean P.2 mmHg MV V2 VTI: 32.3 cm Reading Physician:02:33 PM
== END ==
PROVIDERS: PCP Family Medicine; Referring Provider Internal Medicine Critical Care Medicine; Visit Provider Internal Medicine Critical Care Medicine
DX: I07.1 Rheumatic tricuspid insufficiency (principal); I27.21 Secondary pulmonary arterial hypertension
CPT/HCPCS: C8929; Q9957

== ENCOUNTER → 2024-11-17 14:41 | Outpatient (CLI) | payer OTHER, SELFPAY | LOC: CAR 14:41 | PROVIDERS: PCP Family Medicine; Referring Provider Family Medicine; Visit Provider Family Medicine | DX: R00.2 Palpitations (principal); Z86.79 Personal history of other diseases of the circulatory system; R00.0 Tachycardia, unspecified | CPT/HCPCS: 93246 ==